=== PATIENT | female | born 1990 | race Caucasian/White ===

== ENCOUNTER 2016-12-10 20:25 | Emergency (ER) | payer OTHER ==
--- NOTE | 2016-12-10 21:27 | DIAGNOSTIC IMAGING REPORT ---
PROCEDURE: XR CHEST 2 VIEW INDICATION: FEVER, initial encounter TECHNIQUE: PA and lateral view. COMPARISON: None. FINDINGS: Lungs are clear. Cardiovascular structures are normal. Bony thorax is unremarkable. IMPRESSION: 1. Negative chest.
--- NOTE | 2016-12-10 21:39 | ED NURSING NOTES ---
Clinical Report - Nurses [facility] [address] [place] [address] 12/10/2016 20:30 Patient: JULIANNE HARRIS TRIAGE Triage time 2034. Acuity: LEVEL 4. Chief Complaint: ("feels like my lungs are froven, they just wont move, theres a bunch of stuff under them, but I can't get it out"). --20:48 Ayse Cline R.N. 20:35 12/10/16. BP: 144/79. HR: 84. RR: 20. O2 saturation: 97% on room air. Temp: 97.9 F. Pain level now: 0/10. --20:48 Ayse Cline R.N. Weight: 89.8 kg stated. Height/Length: 65 inches Per Patient. BMI: 33. --20:44 Ayse Cline R.N. Medications Citalopram Hydrobromide Oral (Tablet 40 mg) 1 tablet, daily . --20:46 Ayse Cline R.N. Vit D 1999 . --20:47 Ayse Cline R.N. albuterol MDI 2 puffs every 4 hours , last dose 1999. --20:47 Ayse Cline R.N. Tessalon Perles Oral 1 capsule, 2x a day, last dose 1899. --20:47 Ayse Cline R.N. Allergies vicodin- migraines, and itchy. --20:45 Ayse Cline R.N. Iodine.(rash) --20:45 Ayse Cline R.N. Zoloft- severe depression and crying fits . --20:46 Ayse Cline R.N. History Arrived by private vehicle. Historian: patient. Unaccompanied. Primary physician (christophe). Onset. (off and on x 3 weeks, getting worse, now having greenish sputum and runny nose). She has had a cough and wheezing. ( was seen for same on the and started on albuterol and tessalon, with out relief). No fever. PAST MEDICAL HX: Negative. Last normal menstrual period- 1 week ago. SURGERY HX: No history of previous surgery. SOCIAL HX: Never smoker. Occasional alcohol use. History of drug use: marijuana. --20:48 Ayse Cline R.N. PROBLEMS: no known problems. ADDITIONAL SURGERIES: no known surgeries. Interventions ID band on patient. To treatment room. --20:48 Ayse Cline R.N. PHYSICAL ASSESSMENT 20:35. Ambulatory to room. GENERAL / NEURO / PSYCH: Alert. Oriented X 4. RESPIRATORY: The patient can speak in full sentences. Cough. CVS: Capillary refill less than 2 seconds. GI / : Abdomen soft. SKIN: Skin is warm and dry. --20:49 Ayse Cline R.N. NURSING PROGRESS NOTES 20:35. Reassurance given. Patient identifiers checked. Call light placed in reach. Side rails up. Bed placed in lowest position. Patient ready for evaluation- chart flagged. --21:17 Ayse Cline R.N. 20:55. Patient transported to radiology by stretcher with tech. --21:19 Ayse Cline R.N. 21:05. Patient returned from radiology by stretcher with tech. ([id number]). --21:19 Ayse Cline R.N. 21:10. ( RT here to do breathing tx). --21:20 Ayse Cline R.N. 21:14 12/10/2016 Duoneb (Ipratropium-Albuterol) Neb TX Nebulizer 1 unit dose given. Given by the respiratory therapist. --21:24 Ayse Cline R.N. 21:40 resting quietly, states that she is feeling better. --22:01 Ayse Cline R.N. DISPOSITION / DISCHARGE 21:45. Condition at departure: unchanged and stable. No learning barriers present. Discharge instructions provided and reviewed with the patient. Reviewed medication(s) (z-pack, robitussin AC). Patient verbalized understanding. Written instructions provided in Wolof. The patient was discharged home and unaccompanied at time of discharge. She left the Emergency Department ambulatory and via private vehicle. Patient driving. --21:53 Ayse Cline R.N. 21:51 12/10/16. BP: deferred. HR: deferred. RR: deferred. O2 saturation: deferred. Temp: deferred. Pain level now: 0/10. --21:53 Ayse Cline R.N. Locked/Released at 12/10/2016 22:01 by Ayse Cline R.N.
--- NOTE | 2016-12-10 21:39 | ED CLINICAL REPORT ---
Clinical Report - Physicians/Mid Levels [facility] [address] [place] [address] 12/10/2016 20:30 Patient: JULIANNE HARRIS Time Seen: 21:19 Dec 10 2016. Arrived- By private vehicle. Historian- patient. HISTORY OF PRESENT ILLNESS Chief Complaint: COUGH. This started 1 months [employer] and is still present. The illness is described as mild. The patient has had a cough. No fever or chills. Additional history - No known contact with a sick individual. (patient cough off and on for about 1 month, has had albuterol treatments. No recent antibiotics. No recent trauma. No hemoptysis. No shortness of breath.). REVIEW OF SYSTEMS No headache, nausea, diarrhea, difficulty with urination or skin rash. No enlarged lymph nodes. All systems otherwise negative, except as recorded above. SOCIAL HISTORY Never smoker. Alcohol use. History of drug use: marijuana. ADDITIONAL NOTES The nursing notes have been reviewed. PHYSICAL EXAM Vital Signs: 12/10/2016 20:35 BP: 144/79. HR: 84. RR: 20. O2 saturation: 97%. Temp: 97.9 F. Pain level now: 0/10. Appearance: Alert. No acute distress. Eyes: Pupils equal, round and reactive to light. ENT: Ears normal. Nose normal. Pharynx normal. Uvula midline. No nasal discharge. Neck: Normal inspection. CVS: Normal heart rate and rhythm. Heart sounds normal. Respiratory: No respiratory distress. Breath sounds normal. No retractions or splinting. Abdomen: Soft and nontender. No abdominal tenderness. Skin: Skin warm. Normal skin color. Neuro: Oriented X 3. No motor deficit. LABS, X-RAYS, AND EKG Chest X-ray: (IMPRESSION: 1. Negative chest. Electronically Final signed by:Soto Lackey MD 12/10/2016 9:27:36 PM). PROGRESS AND PROCEDURES Course of Care: Patient was started on symptoms for a month, afebrile, normal cardiac in the ER, patient with negative chest x-ray. No hemoptysis. No recent travel. Will treat for bronchitis. Patient since plan, has albuterol inhaler. No chest pain. No abdominal pain. No sore throat. Nonseptic afebrile. Patient is stable. Physical exam findings are improved. Symptoms better. Patient/family counseled. Disposition: Discharged. Condition: good. CLINICAL IMPRESSION Acute bronchitis. INSTRUCTIONS Drink plenty of fluids. Warnings: Further evaluation is necessary. Prescription Medications: Robitussin A-C cough syrup take one (1) teaspoon orally every 6 hours as needed for cough for 3 days. Dispense sixty (60) mL. Substitution is permissible. Zithromax 250 mg tablets: take 2 orally today, followed by 1 daily for the next 4 days. No refills. Substitution is permissible. Follow-up: Follow up with your doctor. Understanding of the discharge instructions verbalized by patient. (Electronically signed by Ewa Razo P.A.-C 12/10/2016 21:46)
--- NOTE | 2016-12-10 21:39 | ED ORDER SUMMARY ---
..... Patient: JULIANNE HARRIS OrderSheet [facility] VisitID: [id number] [address] [address] 26y, F Registration Date/Time: 12/10/2016 ORDER SHEET Weight: 89.8 kg (stated) Allergies: vicodin- migraines, and itchy, Iodine, Zoloft- severe depression and crying fits GENERAL ORDERS: Chest 2V Urgent (20:53 12/10/2016 Eden P.A.-C) (Ack 20:59 RKaruga) (21:05 MCampbell) MEDICATION ORDERS: DuoNeb Neb Tx 1 unit dose (NOW) (20:52 12/10/2016 Eden P.A.-C) (21:24 Emre R.N.) IV FLUIDS: ORDER SHEET NOTES: [Electronically signed by Ewa RazoARaul-Maxine (21:46 12/10/2016)] [Electronically signed by Ayse Cline R.N. (22:01 12/10/2016)] [Electronically locked/signed by Ayse Cline R.N. (22:12/10/2016)]
--- NOTE | 2016-12-10 21:39 | ED NURSING NOTES ---
Clinical Report - Nurses [facility] [address] [place] [address] 12/10/2016 20:30 Patient: JULIANNE HARRIS TRIAGE Triage time 2034. Acuity: LEVEL 4. Chief Complaint: ("feels like my lungs are froven, they just wont move, theres a bunch of stuff under them, but I can't get it out"). --20:48 Ayse Cline R.N. 20:35 12/10/16. BP: 144/79. HR: 84. RR: 20. O2 saturation: 97% on room air. Temp: 97.9 F. Pain level now: 0/10. --20:48 Ayse Cline R.N. Weight: 89.8 kg stated. Height/Length: 65 inches Per Patient. BMI: 33. --20:44 Ayse Cline R.N. Medications Citalopram Hydrobromide Oral (Tablet 40 mg) 1 tablet, daily . --20:46 Ayse Cline R.N. Vit D 1999 . --20:47 Ayse Cline R.N. albuterol MDI 2 puffs every 4 hours , last dose 1999. --20:47 Ayse Cline R.N. Tessalon Perles Oral 1 capsule, 2x a day, last dose 1899. --20:47 Ayse Cline R.N. Allergies vicodin- migraines, and itchy. --20:45 Ayse Cline R.N. Iodine.(rash) --20:45 Ayse Cline R.N. Zoloft- severe depression and crying fits . --20:46 Ayse Cline R.N. History Arrived by private vehicle. Historian: patient. Unaccompanied. Primary physician (christophe). Onset. (off and on x 3 weeks, getting worse, now having greenish sputum and runny nose). She has had a cough and wheezing. ( was seen for same on the and started on albuterol and tessalon, with out relief). No fever. PAST MEDICAL HX: Negative. Last normal menstrual period- 1 week ago. SURGERY HX: No history of previous surgery. SOCIAL HX: Never smoker. Occasional alcohol use. History of drug use: marijuana. --20:48 Ayse Cline R.N. PROBLEMS: no known problems. ADDITIONAL SURGERIES: no known surgeries. Interventions ID band on patient. To treatment room. --20:48 Ayse Cline R.N. PHYSICAL ASSESSMENT 20:35. Ambulatory to room. GENERAL / NEURO / PSYCH: Alert. Oriented X 4. RESPIRATORY: The patient can speak in full sentences. Cough. CVS: Capillary refill less than 2 seconds. GI / : Abdomen soft. SKIN: Skin is warm and dry. --20:49 Ayse Cline R.N. NURSING PROGRESS NOTES 20:35. Reassurance given. Patient identifiers checked. Call light placed in reach. Side rails up. Bed placed in lowest position. Patient ready for evaluation- chart flagged. --21:17 Ayse Cline R.N. 20:55. Patient transported to radiology by stretcher with tech. --21:19 Ayse Cline R.N. 21:05. Patient returned from radiology by stretcher with tech. ([id number]). --21:19 Ayse Cline R.N. 21:10. ( RT here to do breathing tx). --21:20 Ayse Cline R.N. 21:14 12/10/2016 Duoneb (Ipratropium-Albuterol) Neb TX Nebulizer 1 unit dose given. Given by the respiratory therapist. --21:24 Ayse Cline R.N. 21:40 resting quietly, states that she is feeling better. --22:01 Ayse Cline R.N. DISPOSITION / DISCHARGE 21:45. Condition at departure: unchanged and stable. No learning barriers present. Discharge instructions provided and reviewed with the patient. Reviewed medication(s) (z-pack, robitussin AC). Patient verbalized understanding. Written instructions provided in Malay. The patient was discharged home and unaccompanied at time of discharge. She left the Emergency Department ambulatory and via private vehicle. Patient driving. --21:53 Ayse Cline R.N. 21:51 12/10/16. BP: deferred. HR: deferred. RR: deferred. O2 saturation: deferred. Temp: deferred. Pain level now: 0/10. --21:53 Ayse Cline R.N. Locked/Released at 12/10/2016 22:01 by Ayes Cline R.N.
--- NOTE | 2016-12-10 21:39 | ED ORDER SUMMARY ---
..... Patient: JULIANNE HARRIS OrderSheet [facility] VisitID: [id number] [address] [place] [address] 26y, F Registration Date/Time: 12/10/2016 ORDER SHEET Weight: 89.8 kg (stated) Allergies: vicodin- migraines, and itchy, Iodine, Zoloft- severe depression and crying fits GENERAL ORDERS: Chest 2V Urgent (20:53 12/10/2016 Eden P.A.-C) (Ack 20:59 RKaruga) (21:05 MCampbell) MEDICATION ORDERS: DuoNeb Neb Tx 1 unit dose (NOW) (20:52 12/10/2016 Eden P.A.-C) (21:24 Emre R.N.) IV FLUIDS: ORDER SHEET NOTES: [Electronically signed by Ewa RazoARaul-Maxine (21:46 12/10/2016)] [Electronically signed by Ayse Cline R.N. (22:01 12/10/2016)] [Electronically locked/signed by Ayse Cline R.N. (22:12/10/2016)]
--- NOTE | 2016-12-10 21:39 | ED CLINICAL REPORT ---
Clinical Report - Physicians/Mid Levels [facility] [address] [place] [place] [address] 12/10/2016 20:30 Patient: JULIANNE HARRIS Time Seen: 21:19 Dec 10 2016. Arrived- By private vehicle. Historian- patient. HISTORY OF PRESENT ILLNESS Chief Complaint: COUGH. This started 1 months [employer] and is still present. The illness is described as mild. The patient has had a cough. No fever or chills. Additional history - No known contact with a sick individual. (patient cough off and on for about 1 month, has had albuterol treatments. No recent antibiotics. No recent trauma. No hemoptysis. No shortness of breath.). REVIEW OF SYSTEMS No headache, nausea, diarrhea, difficulty with urination or skin rash. No enlarged lymph nodes. All systems otherwise negative, except as recorded above. SOCIAL HISTORY Never smoker. Alcohol use. History of drug use: marijuana. ADDITIONAL NOTES The nursing notes have been reviewed. PHYSICAL EXAM Vital Signs: 12/10/2016 20:35 BP: 144/79. HR: 84. RR: 20. O2 saturation: 97%. Temp: 97.9 F. Pain level now: 0/10. Appearance: Alert. No acute distress. Eyes: Pupils equal, round and reactive to light. ENT: Ears normal. Nose normal. Pharynx normal. Uvula midline. No nasal discharge. Neck: Normal inspection. CVS: Normal heart rate and rhythm. Heart sounds normal. Respiratory: No respiratory distress. Breath sounds normal. No retractions or splinting. Abdomen: Soft and nontender. No abdominal tenderness. Skin: Skin warm. Normal skin color. Neuro: Oriented X 3. No motor deficit. LABS, X-RAYS, AND EKG Chest X-ray: (IMPRESSION: 1. Negative chest. Electronically Final signed by:Soto Lackey MD 12/10/2016 9:27:36 PM). PROGRESS AND PROCEDURES Course of Care: Patient was started on symptoms for a month, afebrile, normal cardiac in the ER, patient with negative chest x-ray. No hemoptysis. No recent travel. Will treat for bronchitis. Patient since plan, has albuterol inhaler. No chest pain. No abdominal pain. No sore throat. Nonseptic afebrile. Patient is stable. Physical exam findings are improved. Symptoms better. Patient/family counseled. Disposition: Discharged. Condition: good. CLINICAL IMPRESSION Acute bronchitis. INSTRUCTIONS Drink plenty of fluids. Warnings: Further evaluation is necessary. Prescription Medications: Robitussin A-C cough syrup take one (1) teaspoon orally every 6 hours as needed for cough for 3 days. Dispense sixty (60) mL. Substitution is permissible. Zithromax 250 mg tablets: take 2 orally today, followed by 1 daily for the next 4 days. No refills. Substitution is permissible. Follow-up: Follow up with your doctor. Understanding of the discharge instructions verbalized by patient. (Electronically signed by Ewa Razo P.A.-C 12/10/2016 21:46)
--- NOTE | 2016-12-10 22:02 | ED MAR SUMMARY ---
..... Medication Administration Record [facility] [address] [place] [address] Patient: JULIANNE HARRIS Visit ID: [id number] 26y, F Weight: 89.8 kg Height/Length: 65 in BMI: 33 ALLERGIES: Zoloft- severe depression and crying fits , Iodine, vicodin- migraines, and itchy Given 21:14 12/10/2016 SonAyse R.N. Medication Administered: DUONEB [NEB TX] (IPRATROPIUM-ALBUTEROL), Dose: 1 unit dose Nebulizer Neb TX. Medication Ordered: DuoNeb Neb Tx 1 unit dose (NOW).
--- NOTE | 2016-12-10 22:02 | ED DISCHARGE INSTRUCTIONS ---
Patient: JULIANNE HARRIS General Instructions [facility] VisitID: [id number] [place] [address] 26y, F Registration Date/Time: 12/10/2016 Acute bronchitis. INSTRUCTIONS Drink plenty of fluids. Warnings: Further evaluation is necessary. Prescription Medications: Robitussin A-C cough syrup take one (1) teaspoon orally every 6 hours as needed for cough for 3 days. Dispense sixty (60) mL. Substitution is permissible. Zithromax 250 mg tablets: take 2 orally today, followed by 1 daily for the next 4 days. No refills. Substitution is permissible. Follow-up: Follow up with your doctor. Understanding of the discharge instructions verbalized by patient. ADDITIONAL INFORMATION Bronchitis (Adult: Abx Tx) BRONCHITIS is an infection of the air passages (bronchial tubes). It often occurs during the common cold. Symptoms include cough with mucus (phlegm) and low-grade fever. Bronchitis usually lasts 7-14 days. Mild cases can be treated with simple home remedies. More severe infection is treated with an antibiotic. Home Care: If symptoms are severe, rest at home for the first 2-3 days. When you resume activity, don't let yourself get too tired. Do not smoke. Avoid being exposed to the smoke of others. You may use acetaminophen (Tylenol) or ibuprofen (Motrin, Advil) to control fever or pain, unless another medicine was prescribed for this. [NOTE: If you have chronic liver or kidney disease or ever had a stomach ulcer or GI bleeding, talk with your doctor before using these medicines.] Your appetite may be poor, so a light diet is fine. Avoid dehydration by drinking 6-8 glasses of fluids per day (water, soft, drinks, juices, tea, soup, etc.). Extra fluids will help loosen secretions in the lungs. Lhiw-iuz-pwjkffu cough medicines that containdextromethorphan(such as Robitussin DM) and decongestants (Actifed or Sudafed) may help relieve cough and congestion. [NOTE: Do not use decongestants if you have high blood pressure.] Finish all antibiotic medicine, even if you are feeling better after only a few days. Follow Up with your doctor or as directed if you dont start to feel better after three days. [NOTE: If you are age 65 or older, or if you have chronic asthma or COPD, we recommend a PNEUMOCOCCAL VACCINATION every five years and a yearly INFLUENZAVACCINATION (FLU-SHOT) every . Ask your doctor about this. If you had an X-ray, a radiologist will review it. You will be notified of any new findings that may affect your care.] Get Prompt Medical Attention if any of the following occur: Fever over 100.4F (38.0C) for more than three days Trouble breathing, wheezing or pain with breathing Coughing up blood or increased amounts of colored sputum Weakness, drowsiness, headache, facial pain, ear pain or a stiff neck You have been given the following additional information: Bronchitis, Antiobiotic Treatment (Adult) (Electronically signed by Ewa Razo P.A.-C 12/10/2016 21:46)
--- NOTE | 2016-12-10 22:02 | ED MAR SUMMARY ---
..... Medication Administration Record [facility] [address] [place] [address] Patient: JULIANNE HARRIS Visit ID: [id number] 26y, F Weight: 89.8 kg Height/Length: 65 in BMI: 33 ALLERGIES: Zoloft- severe depression and crying fits , Iodine, vicodin- migraines, and itchy Given 21:14 12/10/2016 SonAyse R.N. Medication Administered: DUONEB [NEB TX] (IPRATROPIUM-ALBUTEROL), Dose: 1 unit dose Nebulizer Neb TX. Medication Ordered: DuoNeb Neb Tx 1 unit dose (NOW).
--- NOTE | 2016-12-10 22:02 | ED MED RECONCILIATION SUMMARY ---
Patient: JULIANNE HARRIS Medication Reconciliation Report [facility] VisitID: [id number] [place] [address] 26y, F Registration Date/Time: 12/10/2016 Weight: 89.8 kg Height/Length: 65 in. BMI: 33.0 ALLERGIES: Iodine, vicodin- migraines, and itchy, Zoloft- severe depression and crying fits The patient's Home Medications are listed below: THE FOLLOWING MEDICATIONS NEED TO BE RECONCILED: albuterol MDI 2 puffs every 4 hours , last dose: 1999 Citalopram Hydrobromide Oral (40 mg) 1 tablet, daily Tessalon Perles Oral 1 capsule, 2x a day, last dose: 1900 Vit D 1999 daiy The source(s) of the original Home Medication information: Not obtained. The following Medications were given to the patient in the Emergency Department: Duoneb [Neb Tx] Neb TX 1 unit dose, administered: 12/10/2016 9:14:00 PM The following Medications were prescribed to the patient: Robitussin A-C cough syrup take one (1) teaspoon orally every 6 hours as needed for cough for 3 days. Dispense sixty (60) mL. Substitution is permissible. -- Ewa Razo P.A.-C Zithromax 250 mg tablets: take 2 orally today, followed by 1 daily for the next 4 days. No refills. Substitution is permissible. -- Ewa Razo P.A.-C
--- NOTE | 2016-12-10 22:02 | ED MED RECONCILIATION SUMMARY ---
Patient: JULIANNE HARRIS Medication Reconciliation Report [facility] VisitID: [id number] [place] [address] 26y, F Registration Date/Time: 12/10/2016 Weight: 89.8 kg Height/Length: 65 in. BMI: 33.0 ALLERGIES: Iodine, vicodin- migraines, and itchy, Zoloft- severe depression and crying fits The patient's Home Medications are listed below: THE FOLLOWING MEDICATIONS NEED TO BE RECONCILED: albuterol MDI 2 puffs every 4 hours , last dose: 1999 Citalopram Hydrobromide Oral (40 mg) 1 tablet, daily Tessalon Perles Oral 1 capsule, 2x a day, last dose: 1900 Vit D 1999 daiy The source(s) of the original Home Medication information: Not obtained. The following Medications were given to the patient in the Emergency Department: Duoneb [Neb Tx] Neb TX 1 unit dose, administered: 12/10/2016 9:14:00 PM The following Medications were prescribed to the patient: Robitussin A-C cough syrup take one (1) teaspoon orally every 6 hours as needed for cough for 3 days. Dispense sixty (60) mL. Substitution is permissible. -- Ewa Razo P.A.-C Zithromax 250 mg tablets: take 2 orally today, followed by 1 daily for the next 4 days. No refills. Substitution is permissible. -- Ewa Razo P.A.-C
== END 2016-12-10 21:48 | disposition home or self-care (01) ==
LOC: ED SRH 20:25
DX: J20.9 Acute bronchitis, unspecified (principal)

== ENCOUNTER 2017-02-03 14:20 | Emergency (ER) | payer OTHER ==
--- NOTE | 2017-02-03 18:44 | ED CLINICAL REPORT ---
Clinical Report - Physicians/Mid Levels [facility] [address] [place] [address] 02/03/2017 14:21 Patient: JULIANNE HARRIS Time Seen: 14:26; upon arrival, initial patient contact, initial documentation, patient care assumed. Arrived- By private vehicle. Historian- patient. HISTORY OF PRESENT ILLNESS Chief Complaint: PELVIC PAIN. This started about 2 weeks ago and still present. The symptoms are described as mild. Modifying factors. Not worsened by anything. Not relieved by anything. The patient has had mild, crampy abdominal pain. She has had mild, intermittent, crampy pelvic pain, described as "pain". No vaginal pain, low back pain, flank pain, abnormal bleeding or vaginal discharge. No urinary frequency, urgency of urination or hematuria. She has had mild pain with urination (today). It is described as "painful". Sexually active- unprotected sex and heterosexual. No exposure to sexually transmitted disease. Does not use control measures. Currently . In 1st trimester. confirmed with home test. Has had no care. G 5. P 2. Ab 2. Not receiving care. Similar symptoms previously: None. Recent medical care: The patient was seen recently in a clinic. ( went to clinic port captain, sent here for further eval). REVIEW OF SYSTEMS No vomiting, diarrhea, fever, difficulty breathing or chest pain. All systems otherwise negative, except as recorded above. PAST HISTORY See nurses notes. ( PROBLEMS: Anxiety Reaction. Optical migranes . Bronchitis. --14:30 Ирина Duarte R.N. ADDITIONAL SURGERIES: no known surgeries.). SOCIAL HISTORY Former smoker. No alcohol use or drug use. No recent travel. Is a local resident. FAMILY HISTORY Negative. ADDITIONAL NOTES The nursing notes have been reviewed with agreement regarding the chief complaint, HPI, ROS, PMH and patient medications and allergies. PHYSICAL EXAM Vital Signs: 02/03/2017 14:26 BP: 129/78. HR: 89. RR: 18. O2 saturation: 100%. Temp: 98.4 F. Have been reviewed as normal and appear to be correct. Appearance: Alert. Oriented X3. No acute distress. HEENT: Normal external inspection. ENT: Pharynx normal. Neck: Neck supple. CVS: Heart sounds normal. Respiratory: No respiratory distress. Breath sounds normal. Chest nontender. Abdomen: Soft and nontender. Bowel sounds normal. No organomegaly. No mass. Back: Normal external inspection. : External inspection normal. Speculum exam normal. Bimanual exam normal. Skin: Skin warm and dry. Normal skin color. No rash. Normal skin turgor. Extremities: Extremities nontender. No lower extremity edema. Neuro: Oriented X 3. Mood/affect normal. No motor deficit. No sensory deficit. LABS, X-RAYS, AND EKG Pelvic Sonogram: Normal study. A single gestation intrauterine (5w1d) is present. No cardiac activity or movement visualized. Viable intrauterine . . report by [employer]. Interpretation time: 1824. Laboratory Tests: CBC w Diff: (SANTOS: 02/03/2017 15:40) ( [facility] 02/03/2017 15:46) Final results Test Result Flag Units (Reference) WHITE BLOOD COUNT 13.3 H K/uL (4.5-11.5) RED BLOOD COUNT 4.46 M/uL (4.00-5.20) HEMOGLOBIN 12.6 gm/dL (12.0-16.0) HEMATOCRIT 37.5 % (36.0-46.0) MEAN CELL VOLUME 84 fL (80-100) MEAN CORPUSCULAR HGB 28 pg (26-34) MEAN CORPUSCULAR HGB CONC 34 g/dL (31-37) RED CELL DISTRIBUTION WIDTH 13.2 % (11.6-14.8) PLATELET COUNT 362 K/uL (150-400) NEUTROPHIL % 74.9 % (50-75) LYMPH % 17.4 L % (25-40) MONO % 5.6 % (3-14) EOSINOPHIL % 1.7 % (0-4) BASOPHIL % 0.4 % (0-2) CMP: (SANTOS: 02/03/2017 15:40) ( [facility] 02/03/2017 16:36) Final results Test Result Flag Units (Reference) GLUCOSE 88 mg/dL (70-110) BUN 12 mg/dL (7-18) CREATININE 0.9 mg/dL (0.6-1.3) Estimated GFR >60 mL/min Estimated GFR- >60 mL/min Note: Persistent reduction over 3 months in eGFR<60 mL/min/1.73 m2 defines CKD. Patients with eGFR values>=60 mL/min/1.73 m2 may also have CKD if evidence ofpersistent proteinuria. Additional information may be foundat www.kidney.org. SODIUM 138 mmol/L (136-145) POTASSIUM 4.0 mmol/L (3.5-5.1) CHLORIDE 102 mmol/L (98-107) CARBON DIOXIDE 27 mmol/L (21-32) CALCIUM 8.9 mg/dL (8.5-10.1) TOTAL PROTEIN 7.1 g/dL (6.4-8.2) ALBUMIN 3.8 g/dL (3.3-5.0) BILIRUBIN, TOTAL 0.4 mg/dL (0.0-1.0) ALKALINE PHOSPHATASE 66 U/L (46-116) AST (SGOT) 24 U/L (15-37) ALT (SGPT) 54 U/L (12-78) BETA HCG, QUANTITATIVE 4189 mIU/mL REFERENCE RANGE:Adult Males: <2 mIU/mLNon- Females: <6 mIU/mL Females:Approximate Approximate hCGGestational Age Range (mIU/mL) 0-1 week 0-501-2 weeks 40-3002-3 weeks 100-86413-8 weeks 500-46504-1 months 5,000-200,0002-3 months 10,000-100,0002nd trimester 3,000-50,0003rd trimester 1,000-50,000 . PROGRESS AND PROCEDURES Course of Care: 17:26 02/03/17. still awaiting us, eta 1800. Patient counseled in person regarding the patient's stable condition, test results and diagnosis. 18:38. Differential Diagnosis: I considered acute appendicitis, mesenteric lymphadenitis, urinary tract infection, cystitis, ureterolithiasis, ovarian cyst, ovarian torsion, , ectopic , pelvic inflammatory disease, pelvic abscess, endometriosis and viral syndrome as a possible cause of pelvic pain in this patient. This is a partial list of diagnoses considered. Above considerations are based on history, physical exam and laboratory data. Differential diagnosis was discussed with patient. Disposition: Discharged home in good and unchanged condition (18:44). Condition: good and stable. CLINICAL IMPRESSION Acute pelvic pain. Acute urinary tract infection with cystitis. No pyelonephritis or hematuria. Not associated with indwelling catheter or obstruction. INSTRUCTIONS Warnings: GENERAL WARNINGS: Return or contact your physician immediately if your condition worsens or changes unexpectedly, if not improving as expected, or if other problems arise. Specifically return if problem worsens. Prescription Medications: Macrobid 100 mg: Take 1 capsule orally every 12 hours for 7 days. No refills. Substitution is permissible. Follow-up: Follow up with your doctor in about two days even if well. Call for an appointment. Summary of care provided to patient. Understanding of the discharge instructions verbalized by patient. (Electronically signed by Livia Gunderson A.R.N.P. 02/03/2017 23:58)
--- NOTE | 2017-02-03 18:44 | ED CLINICAL REPORT ---
Clinical Report - Physicians/Mid Levels [facility] [address] [place] [place] [address] 02/03/2017 14:21 Patient: JULIANNE HARRIS Time Seen: 14:26; upon arrival, initial patient contact, initial documentation, patient care assumed. Arrived- By private vehicle. Historian- patient. HISTORY OF PRESENT ILLNESS Chief Complaint: PELVIC PAIN. This started about 2 weeks ago and still present. The symptoms are described as mild. Modifying factors. Not worsened by anything. Not relieved by anything. The patient has had mild, crampy abdominal pain. She has had mild, intermittent, crampy pelvic pain, described as "pain". No vaginal pain, low back pain, flank pain, abnormal bleeding or vaginal discharge. No urinary frequency, urgency of urination or hematuria. She has had mild pain with urination (today). It is described as "painful". Sexually active- unprotected sex and heterosexual. No exposure to sexually transmitted disease. Does not use control measures. Currently . In 1st trimester. confirmed with home test. Has had no care. G 5. P 2. Ab 2. Not receiving care. Similar symptoms previously: None. Recent medical care: The patient was seen recently in a clinic. ( went to clinic barge captain, sent here for further eval). REVIEW OF SYSTEMS No vomiting, diarrhea, fever, difficulty breathing or chest pain. All systems otherwise negative, except as recorded above. PAST HISTORY See nurses notes. ( PROBLEMS: Anxiety Reaction. Optical migranes . Bronchitis. --14:30 Ирина Duarte R.N. ADDITIONAL SURGERIES: no known surgeries.). SOCIAL HISTORY Former smoker. No alcohol use or drug use. No recent travel. Is a local resident. FAMILY HISTORY Negative. ADDITIONAL NOTES The nursing notes have been reviewed with agreement regarding the chief complaint, HPI, ROS, PMH and patient medications and allergies. PHYSICAL EXAM Vital Signs: 02/03/2017 14:26 BP: 129/78. HR: 89. RR: 18. O2 saturation: 100%. Temp: 98.4 F. Have been reviewed as normal and appear to be correct. Appearance: Alert. Oriented X3. No acute distress. HEENT: Normal external inspection. ENT: Pharynx normal. Neck: Neck supple. CVS: Heart sounds normal. Respiratory: No respiratory distress. Breath sounds normal. Chest nontender. Abdomen: Soft and nontender. Bowel sounds normal. No organomegaly. No mass. Back: Normal external inspection. : External inspection normal. Speculum exam normal. Bimanual exam normal. Skin: Skin warm and dry. Normal skin color. No rash. Normal skin turgor. Extremities: Extremities nontender. No lower extremity edema. Neuro: Oriented X 3. Mood/affect normal. No motor deficit. No sensory deficit. LABS, X-RAYS, AND EKG Pelvic Sonogram: Normal study. A single gestation intrauterine (5w1d) is present. No cardiac activity or movement visualized. Viable intrauterine . . report by [employer]. Interpretation time: 1824. Laboratory Tests: CBC w Diff: (SANTOS: 02/03/2017 15:40) ( [facility] 02/03/2017 15:46) Final results Test Result Flag Units (Reference) WHITE BLOOD COUNT 13.3 H K/uL (4.5-11.5) RED BLOOD COUNT 4.46 M/uL (4.00-5.20) HEMOGLOBIN 12.6 gm/dL (12.0-16.0) HEMATOCRIT 37.5 % (36.0-46.0) MEAN CELL VOLUME 84 fL (80-100) MEAN CORPUSCULAR HGB 28 pg (26-34) MEAN CORPUSCULAR HGB CONC 34 g/dL (31-37) RED CELL DISTRIBUTION WIDTH 13.2 % (11.6-14.8) PLATELET COUNT 362 K/uL (150-400) NEUTROPHIL % 74.9 % (50-75) LYMPH % 17.4 L % (25-40) MONO % 5.6 % (3-14) EOSINOPHIL % 1.7 % (0-4) BASOPHIL % 0.4 % (0-2) CMP: (SANTOS: 02/03/2017 15:40) ( [facility] 02/03/2017 16:36) Final results Test Result Flag Units (Reference) GLUCOSE 88 mg/dL (70-110) BUN 12 mg/dL (7-18) CREATININE 0.9 mg/dL (0.6-1.3) Estimated GFR >60 mL/min Estimated GFR- >60 mL/min Note: Persistent reduction over 3 months in eGFR<60 mL/min/1.73 m2 defines CKD. Patients with eGFR values>=60 mL/min/1.73 m2 may also have CKD if evidence ofpersistent proteinuria. Additional information may be foundat www.kidney.org. SODIUM 138 mmol/L (136-145) POTASSIUM 4.0 mmol/L (3.5-5.1) CHLORIDE 102 mmol/L (98-107) CARBON DIOXIDE 27 mmol/L (21-32) CALCIUM 8.9 mg/dL (8.5-10.1) TOTAL PROTEIN 7.1 g/dL (6.4-8.2) ALBUMIN 3.8 g/dL (3.3-5.0) BILIRUBIN, TOTAL 0.4 mg/dL (0.0-1.0) ALKALINE PHOSPHATASE 66 U/L (46-116) AST (SGOT) 24 U/L (15-37) ALT (SGPT) 54 U/L (12-78) BETA HCG, QUANTITATIVE 4189 mIU/mL REFERENCE RANGE:Adult Males: <2 mIU/mLNon- Females: <6 mIU/mL Females:Approximate Approximate hCGGestational Age Range (mIU/mL) 0-1 week 0-501-2 weeks 40-3002-3 weeks 100-88595-7 weeks 500-64900-2 months 5,000-200,0002-3 months 10,000-100,0002nd trimester 3,000-50,0003rd trimester 1,000-50,000 . PROGRESS AND PROCEDURES Course of Care: 17:26 02/03/17. still awaiting us, eta 1800. Patient counseled in person regarding the patient's stable condition, test results and diagnosis. 18:38. Differential Diagnosis: I considered acute appendicitis, mesenteric lymphadenitis, urinary tract infection, cystitis, ureterolithiasis, ovarian cyst, ovarian torsion, , ectopic , pelvic inflammatory disease, pelvic abscess, endometriosis and viral syndrome as a possible cause of pelvic pain in this patient. This is a partial list of diagnoses considered. Above considerations are based on history, physical exam and laboratory data. Differential diagnosis was discussed with patient. Disposition: Discharged home in good and unchanged condition (18:44). Condition: good and stable. CLINICAL IMPRESSION Acute pelvic pain. Acute urinary tract infection with cystitis. No pyelonephritis or hematuria. Not associated with indwelling catheter or obstruction. INSTRUCTIONS Warnings: GENERAL WARNINGS: Return or contact your physician immediately if your condition worsens or changes unexpectedly, if not improving as expected, or if other problems arise. Specifically return if problem worsens. Prescription Medications: Macrobid 100 mg: Take 1 capsule orally every 12 hours for 7 days. No refills. Substitution is permissible. Follow-up: Follow up with your doctor in about two days even if well. Call for an appointment. Summary of care provided to patient. Understanding of the discharge instructions verbalized by patient. (Electronically signed by Livia Gunderson A.R.N.P. 02/03/2017 23:58)
--- NOTE | 2017-02-03 18:44 | ED NURSING NOTES ---
Clinical Report - Nurses [facility] [address] [place] [address] 02/03/2017 14:21 Patient: JULIANNE HARRIS TRIAGE Triage time 14:Feb 03 2017. Acuity: LEVEL 3. Chief Complaint: ABDOMINAL PAIN and CRAMPS. VISH COMA SCORE: Vish Coma Scale: 15- eyes open spontaneously (4); best verbal response- oriented x 4 (5); best motor response- obeys commands (6). --14:33 Ирина Duarte R.N. 14:26 02/03/17. BP: 129/78. HR: 89. RR: 18. O2 saturation: 100%. Temp: 98.4 F. Pain level now 2/10. --14:33 Ирина Duarte R.N. Weight: 90.7 kg. Height/Length: 65 inches Per Patient. BMI: 33.3. --14:30 Ирина Duarte R.N. Medications Citalopram Hydrobromide Oral. --14:28 Ирина Duarte R.N. Prenantal . --14:28 Ирина Duarte R.N. Allergies Iodine.(rash) vicodin- migraines, and itchy. --14:29 Ирина Duarte R.N. Latex. --14:29 Ирина Duarte R.N. History Arrived by private vehicle. Historian: patient. Accompanied by family. Onset. (2 weeks of cramping). ( 5 weeks and cramping.). No vomiting, fever or swelling. Last oral intake by patient was (130 PM). PAST MEDICAL HX: Mild hypertension. No history of diabetes mellitus. Immunizations: up-to-date. Currently . No known risks or problems associated with current . OB history: G 5; P 2; Ab 4. SOCIAL HX: Former smoker, end date 2015. No alcohol use or drug use. SELF HARM ASSESSMENT: A self harm assessment was performed. The patient answered "no" to the question "Have you recently felt down, depressed, or hopeless?" and "Do you have thoughts of harming or killing yourself?". FALL RISK ASSESSMENT: Fall risk assessment completed. No fall risk identified. NUTRITIONAL RISK ASSESSMENT: The nutritional risk assessment revealed no deficiencies. FUNCTIONAL ASSESSMENT: Functional assessment: no impairments noted. LEARNING NEEDS ASSESSMENT: The learning needs assessment revealed no barriers. ABUSE ASSESSMENT: Abuse assessment: (yes) The patient was asked "Do you feel safe in your home?". SKIN INTEGRITY ASSESSMENT: Skin integrity risk assessment completed. No skin integrity risk identified. --14:33 Ирина Duarte R.N. PROBLEMS: Anxiety Reaction. Optical migranes . Bronchitis. --14:30 Ирина Duarte R.N. ADDITIONAL SURGERIES: no known surgeries. Interventions ID and allergy band on patient. --14:33 Ирина Duarte R.N. PHYSICAL ASSESSMENT Ambulatory to room. GENERAL / NEURO / PSYCH: Alert. Oriented X 4. Appears anxious. HEENT: Mucous membranes are pink. RESPIRATORY: Respirations not labored. Breath sounds within normal limits. CVS: Normal heart rate and rhythm. Capillary refill less than 2 seconds. GI / : Abdomen soft. Abdominal tenderness. Bowel sounds within normal limits. ( Last BM 2 hours ago and normal). EXTREMITIES: No lower extremity edema. SKIN: Skin is warm. --14:34 Ирина Duarte R.N. NURSING PROGRESS NOTES The plan of care for this patient has been created. Pulse oximeter and NIBP monitor placed on patient. Head of bed elevated (90). Reassurance given. Call light placed in reach. Side rails up x 1. Bed placed in lowest position. Brakes of bed on. --14:34 Ирина Duarte R.N. PELVIC EXAM: Pelvic exam performed by BUSINESS CONTINUITY PLANNER. Assisted by one tech. Preparation: pelvic tray. Total time of assist / procedure: 15 minutes. --15:22 Samantha Dhillon ER Tech1 18:24 02/03/17. ( Outside Machinist Supervisor provided for Ultrasound). --18:25 Duy Buenrostro. DISPOSITION / DISCHARGE Departure time: 1850. Condition at departure: improved. No learning barriers present. Discharge instructions provided and reviewed with the patient and family. Reviewed medication(s) information. Prescription(s) given to the patient. Reviewed referral to family practice for followup (in 2 days even if well). Verbalized understanding. Written instructions provided. The patient was discharged home and accompanied by family. She left the Emergency Department ambulatory and via private vehicle. --18:55 Herminia Klein R.N. 18:50 02/03/17. BP: 132/84. HR: 95. RR: 18. O2 saturation: 95%. --18:55 Herminia Klein R.N. Locked/Released at 02/04/2017 19:27 by Ирина Duarte R.N.
--- NOTE | 2017-02-03 18:44 | ED NURSING NOTES ---
Clinical Report - Nurses [facility] [address] [place] [address] 02/03/2017 14:21 Patient: JULIANNE HARRIS TRIAGE Triage time 14:Feb 03 2017. Acuity: LEVEL 3. Chief Complaint: ABDOMINAL PAIN and CRAMPS. VISH COMA SCORE: Vish Coma Scale: 15- eyes open spontaneously (4); best verbal response- oriented x 4 (5); best motor response- obeys commands (6). --14:33 Ирина Duarte R.N. 14:26 02/03/17. BP: 129/78. HR: 89. RR: 18. O2 saturation: 100%. Temp: 98.4 F. Pain level now 2/10. --14:33 Ирина Duarte R.N. Weight: 90.7 kg. Height/Length: 65 inches Per Patient. BMI: 33.3. --14:30 Ирина Duarte R.N. Medications Citalopram Hydrobromide Oral. --14:28 Ирина Duarte R.N. Prenantal . --14:28 Ирина Duarte R.N. Allergies Iodine.(rash) vicodin- migraines, and itchy. --14:29 Ирина Duarte R.N. Latex. --14:29 Ирина Duarte R.N. History Arrived by private vehicle. Historian: patient. Accompanied by family. Onset. (2 weeks of cramping). ( 5 weeks and cramping.). No vomiting, fever or swelling. Last oral intake by patient was (130 PM). PAST MEDICAL HX: Mild hypertension. No history of diabetes mellitus. Immunizations: up-to-date. Currently . No known risks or problems associated with current . OB history: G 5; P 2; Ab 4. SOCIAL HX: Former smoker, end date 2015. No alcohol use or drug use. SELF HARM ASSESSMENT: A self harm assessment was performed. The patient answered "no" to the question "Have you recently felt down, depressed, or hopeless?" and "Do you have thoughts of harming or killing yourself?". FALL RISK ASSESSMENT: Fall risk assessment completed. No fall risk identified. NUTRITIONAL RISK ASSESSMENT: The nutritional risk assessment revealed no deficiencies. FUNCTIONAL ASSESSMENT: Functional assessment: no impairments noted. LEARNING NEEDS ASSESSMENT: The learning needs assessment revealed no barriers. ABUSE ASSESSMENT: Abuse assessment: (yes) The patient was asked "Do you feel safe in your home?". SKIN INTEGRITY ASSESSMENT: Skin integrity risk assessment completed. No skin integrity risk identified. --14:33 Ирина Duarte R.N. PROBLEMS: Anxiety Reaction. Optical migranes . Bronchitis. --14:30 Ирина Duarte R.N. ADDITIONAL SURGERIES: no known surgeries. Interventions ID and allergy band on patient. --14:33 Ирина Duarte R.N. PHYSICAL ASSESSMENT Ambulatory to room. GENERAL / NEURO / PSYCH: Alert. Oriented X 4. Appears anxious. HEENT: Mucous membranes are pink. RESPIRATORY: Respirations not labored. Breath sounds within normal limits. CVS: Normal heart rate and rhythm. Capillary refill less than 2 seconds. GI / : Abdomen soft. Abdominal tenderness. Bowel sounds within normal limits. ( Last BM 2 hours ago and normal). EXTREMITIES: No lower extremity edema. SKIN: Skin is warm. --14:34 Ирина Duarte R.N. NURSING PROGRESS NOTES The plan of care for this patient has been created. Pulse oximeter and NIBP monitor placed on patient. Head of bed elevated (90). Reassurance given. Call light placed in reach. Side rails up x 1. Bed placed in lowest position. Brakes of bed on. --14:34 Ирина Duarte R.N. PELVIC EXAM: Pelvic exam performed by FAMILY DEVELOPMENT SPECIALIST. Assisted by one tech. Preparation: pelvic tray. Total time of assist / procedure: 15 minutes. --15:22 Samantha Dhillon ER Tech1 18:24 02/03/17. ( Packing Floor Worker provided for Ultrasound). --18:25 Duy Buenrostro. DISPOSITION / DISCHARGE Departure time: 1850. Condition at departure: improved. No learning barriers present. Discharge instructions provided and reviewed with the patient and family. Reviewed medication(s) information. Prescription(s) given to the patient. Reviewed referral to family practice for followup (in 2 days even if well). Verbalized understanding. Written instructions provided. The patient was discharged home and accompanied by family. She left the Emergency Department ambulatory and via private vehicle. --18:55 Herminia Klein R.N. 18:50 02/03/17. BP: 132/84. HR: 95. RR: 18. O2 saturation: 95%. --18:55 Herminia Klein R.N. Locked/Released at 02/04/2017 19:27 by Ирина Duarte R.N.
--- NOTE | 2017-02-03 18:44 | ED ORDER SUMMARY ---
..... Patient: JULIANNE HARRIS OrderSheet [facility] VisitID: [id number] [address] [place] [address] 26y, F Registration Date/Time: 02/03/2017 ORDER SHEET Weight: 90.7 kg Allergies: Iodine, vicodin- migraines, and itchy, Latex GENERAL ORDERS: CBC w Diff Urgent (15:32 02/03/2017 HBivens A.R.N.P.) (Ack 15:34 KHoerner) (16:38 KHoerner) CMP Urgent (15:32 02/03/2017 HBivens A.R.N.P.) (Ack 15:34 KHoerner) (16:38 KHoerner) Serum Quantitative Urgent (15:32 02/03/2017 HBivens A.R.N.P.) (Ack 15:34 KHoerner) (16:38 KHoerner) US OB 1st Trimester w Transvag (5 wks) Urgent (16:44 02/03/2017 HBivens A.R.N.P.) (Ack 16:55 KHoerner) (18:39 MWinterer R.N.) UA-Culture if indicated Urgent (17:08 02/03/2017 HBivens A.R.N.P.) (Ack 17:11 KHoerner) (17:11 KHoerner) MEDICATION ORDERS: IV FLUIDS: ORDER SHEET NOTES: [Electronically signed by Livia Gunderson A.R.N.P. (23:58 02/03/2017)] [Electronically signed by Ирина Duarte R.N. (19:27 02/04/2017)] [Electronically locked/signed by Ирина Duarte R.N. (:02/04/2017)]
--- NOTE | 2017-02-03 18:44 | ED ORDER SUMMARY ---
..... Patient: JULIANNE HARRIS OrderSheet [facility] VisitID: [id number] [address] [place] [address] 26y, F Registration Date/Time: 02/03/2017 ORDER SHEET Weight: 90.7 kg Allergies: Iodine, vicodin- migraines, and itchy, Latex GENERAL ORDERS: CBC w Diff Urgent (15:32 02/03/2017 HBivens A.R.N.P.) (Ack 15:34 KHoerner) (16:38 KHoerner) CMP Urgent (15:32 02/03/2017 HBivens A.R.N.P.) (Ack 15:34 KHoerner) (16:38 KHoerner) Serum Quantitative Urgent (15:32 02/03/2017 HBivens A.R.N.P.) (Ack 15:34 KHoerner) (16:38 KHoerner) US OB 1st Trimester w Transvag (5 wks) Urgent (16:44 02/03/2017 HBivens A.R.N.P.) (Ack 16:55 KHoerner) (18:39 MWinterer R.N.) UA-Culture if indicated Urgent (17:08 02/03/2017 HBivens A.R.N.P.) (Ack 17:11 KHoerner) (17:11 KHoerner) MEDICATION ORDERS: IV FLUIDS: ORDER SHEET NOTES: [Electronically signed by Livia Gunderson A.R.N.P. (23:58 02/03/2017)] [Electronically signed by Ирина Duarte R.N. (19:27 02/04/2017)] [Electronically locked/signed by Ирина Duarte R.N. (:02/04/2017)]
--- NOTE | 2017-02-03 20:25 | DIAGNOSTIC IMAGING REPORT ---
PROCEDURE: US OB 1ST TRIMESTER W/TRANSVAG INDICATION: POSSIBLE ECTOPIC TECHNIQUE: Deng scale, color, and spectral Doppler transabdominal and endovaginal sonographic images of the first trimester gravid uterus were obtained. (Omid Condon, ED). COMPARISON: None. FINDINGS: TRANSABDOMINAL SCANS: Uterus is of normal size. TRANSVAGINAL SCANS: There is an early intrauterine gestational sac (0.7 cm). However, there is no evidence of pole or yolk sac. Right adnexal region is normal. There is a 1.8 cm left corpus luteum cyst. Small amount of free fluid the pelvis IMPRESSION: 1. Early intrauterine gestational sac (0.7 cm, 5.5 weeks). However, there is no pole at this early gestational age, and viability cannot be confirmed. 2. There is a 1.8 cm left corpus luteum cyst (incidental finding) with small amount of free fluid in the pelvis. 3. Fine discussed with MARCELA Gleason.
--- NOTE | 2017-02-04 19:27 | ED MED RECONCILIATION SUMMARY ---
Patient: JULIANNE HARRIS Medication Reconciliation Report [facility] VisitID: [id number] [address] [place] [address] 26y, F Registration Date/Time: 02/03/2017 Weight: 90.7 kg Height/Length: 65 in. BMI: 33.3 ALLERGIES: Iodine, Latex, vicodin- migraines, and itchy The patient's Home Medications are listed below: THE FOLLOWING MEDICATIONS NEED TO BE RECONCILED: Citalopram Hydrobromide Oral Prenantal The source(s) of the original Home Medication information: Not obtained. The following Medications were given to the patient in the Emergency Department: None. The following Medications were prescribed to the patient: Macrobid 100 mg: Take 1 capsule orally every 12 hours for 7 days. No refills. Substitution is permissible. -- Livia Gunderson A.R.N.P.
--- NOTE | 2017-02-04 19:27 | ED DISCHARGE INSTRUCTIONS ---
Patient: JULIANNE HARRIS General Instructions [facility] VisitID: [id number] [place] [address] 26y, F Registration Date/Time: 02/03/2017 Acute pelvic pain. Acute urinary tract infection with cystitis. No pyelonephritis or hematuria. Not associated with indwelling catheter or obstruction. INSTRUCTIONS Warnings: GENERAL WARNINGS: Return or contact your physician immediately if your condition worsens or changes unexpectedly, if not improving as expected, or if other problems arise. Specifically return if problem worsens. Prescription Medications: Macrobid 100 mg: Take 1 capsule orally every 12 hours for 7 days. No refills. Substitution is permissible. Follow-up: Follow up with your doctor in about two days even if well. Call for an appointment. Summary of care provided to patient. Understanding of the discharge instructions verbalized by patient. ADDITIONAL INFORMATION Pelvic Pain, Uncertain Cause Based on your visit today, the exact cause of your pelvic pain is not certain. But your condition does not appear to be serious at this time. However, the signs of a serious problem may take more time to appear. Therefore, it is important for you to watch for any new symptoms or worsening of your condition. Home Care: Rest until you are feeling better. Avoid sexual intercourse until your pain goes away. You may use acetaminophen (Tylenol) or ibuprofen (Motrin, Advil) to control pain, unless another medicine was prescribed. [NOTE: If you have chronic liver or kidney disease or ever had a stomach ulcer or GI bleeding, talk with your doctor before using these medicines.] Follow Up with your doctor as advised. If a culture test was taken, call in two days for the results. If the culture is positive, you will be given more advice at that time. Otherwise, follow-up with your doctor or this facility as instructed. Get Prompt Medical Attention if any of the following occur: Fever of 100.4F (38C) or higher, or as directed by your healthcare provider Vaginal discharge Worsening pain Weakness, dizziness or fainting Unexpected vaginal bleeding or passage of tan or white tissue from the vagina Pain that moves to the right lower abdomen Bladder Infection,Female (Adult) A bladder infection ("cystitis" or "UTI") usually causes a constant urge to urinate and a burning when passing urine. Urine may be cloudy, smelly or dark. There may be pain in the lower abdomen. A bladder infection occurs when bacteria from the vaginal area enter the bladder opening (urethra). This can occur from sexual intercourse, wearing tight clothing, dehydration and other factors. Home Care: Drink lots of fluids (at least 6-8 glasses a day, unless you must restrict fluids for other medical reasons). This will force the medicine into your urinary system and flush the bacteria out of your body. Avoid sexual intercourse until your symptoms are gone. Avoid caffeine, alcohol and spicy foods. These can irritate the bladder. A bladder infection is treated with antibiotics. You may also be given Pyridium (generic = phenazopyridine) to reduce the burning sensation. This medicine will cause your urine to become a bright orange color. The orange urine may stain clothing. You may wear a pad or panty-liner to protect clothing. Preventing Future Infections: Always wipe from front to back after a bowel movement. Keep the genital area clean and dry. Drink plenty of fluids each day to avoid dehydration. Both sexual partners should wash before intercourse. Urinate right after intercourse to flush out the bladder. Wear cotton underwear and cotton-lined panty hose; avoid tight-fitting pants. If you are on control pills and are having frequent bladder infections, discuss with your doctor. Follow Up: Return to this facility or see your doctor if ALL symptoms are not gone after three days of treatment. Get Prompt Medical Attention if any of the following occur: Fever of 100.4F (38C) or higher, or as directed by your healthcare provider No improvement by the third day of treatment Increasing back or abdominal pain Repeated vomiting; unable to keep medicine down Weakness, dizziness or fainting Vaginal discharge Pain, redness or swelling in the labia (outer vaginal area) Nitrofurantoin, Nitrofurantoin, Macrocrystalline Oral capsule What is this medicine? NITROFURANTOIN (cole rutledge) is an antibiotic. It is used to treat urinary tract infections. How should I use this medicine? Take this medicine by mouth with a glass of water. Follow the directions on the prescription label. Take this medicine with food or milk. Take your doses at regular intervals. Do not take your medicine more often than directed. Do not stop taking except on your doctor's advice. Talk to your manager decision support regarding the use of this medicine in children. While this drug may be prescribed for selected conditions, precautions do apply. What side effects may I notice from receiving this medicine? Side effects that you should report to your doctor or health nurse healthcare manager as soon as possible: allergic reactions like skin rash or hives, swelling of the face, lips, or tongue chest pain cough difficulty breathing dizziness, drowsiness fever or infection joint aches or pains pale or blue-tinted skin redness, blistering, peeling or loosening of the skin, including inside the mouth tingling, burning, pain, or numbness in hands or feet unusual bleeding or bruising unusually weak or tired yellowing of eyes or skin Side effects that usually do not require medical attention (report to your doctor or health nurse healthcare manager if they continue or are bothersome): dark urine diarrhea headache loss of appetite nausea or vomiting temporary hair loss What may interact with this medicine? antacids containing magnesium trisilicate probenecid quinolone antibiotics like ciprofloxacin, lomefloxacin, norfloxacin and ofloxacin sulfinpyrazone What if I miss a dose? If you miss a dose, take it as soon as you can. If it is almost time for your next dose, take only that dose. Do not take double or extra doses. Where should I keep my medicine? Keep out of the reach of children. Store at room temperature between 15 and 30 degrees C (59 and 86 degrees F). Protect from light. Throw away any unused medicine after the expiration date. What should I tell my health care provider before I take this medicine? They need to know if you have any of these conditions: anemia diabetes ynhdlfq-4-rccfiomtp dehydrogenase deficiency kidney disease liver disease lung disease other chronic illness an unusual or allergic reaction to nitrofurantoin, other antibiotics, other medicines, foods, dyes or preservatives or trying to get breast-feeding What should I watch for while using this medicine? Tell your doctor or health nurse healthcare manager if your symptoms do not improve or if you get new symptoms. Drink several glasses of water a day. If you are taking this medicine for a long time, visit your doctor for regular checks on your progress. If you are diabetic, you may get a false positive result for sugar in your urine with certain brands of urine tests. Check with your doctor. You have been given the following additional information: Pelvic Pain, Unknown Cause Bladder Infection, Female (Adult) Nitrofurantoin, Nitrofurantoin, Macrocrystalline Oral capsule (Electronically signed by Livia Gunedrson A.R.N.P. 02/03/2017 23:58)
--- NOTE | 2017-02-04 19:27 | ED MAR SUMMARY ---
..... Medication Administration [facility] [address] [place], [place] [id number] Patient: JULIANNE HARRIS Visit ID: [id number] 26y, F Weight: 90.7 kg Height/Length: 65 in BMI: 33.3 ALLERGIES: Latex, Iodine, vicodin- migraines, and itchy
--- NOTE | 2017-02-04 19:27 | ED DISCHARGE INSTRUCTIONS ---
Patient: JULIANNE HARRIS General Instructions [facility] VisitID: [id number] [place] [address] 26y, F Registration Date/Time: 02/03/2017 Acute pelvic pain. Acute urinary tract infection with cystitis. No pyelonephritis or hematuria. Not associated with indwelling catheter or obstruction. INSTRUCTIONS Warnings: GENERAL WARNINGS: Return or contact your physician immediately if your condition worsens or changes unexpectedly, if not improving as expected, or if other problems arise. Specifically return if problem worsens. Prescription Medications: Macrobid 100 mg: Take 1 capsule orally every 12 hours for 7 days. No refills. Substitution is permissible. Follow-up: Follow up with your doctor in about two days even if well. Call for an appointment. Summary of care provided to patient. Understanding of the discharge instructions verbalized by patient. ADDITIONAL INFORMATION Pelvic Pain, Uncertain Cause Based on your visit today, the exact cause of your pelvic pain is not certain. But your condition does not appear to be serious at this time. However, the signs of a serious problem may take more time to appear. Therefore, it is important for you to watch for any new symptoms or worsening of your condition. Home Care: Rest until you are feeling better. Avoid sexual intercourse until your pain goes away. You may use acetaminophen (Tylenol) or ibuprofen (Motrin, Advil) to control pain, unless another medicine was prescribed. [NOTE: If you have chronic liver or kidney disease or ever had a stomach ulcer or GI bleeding, talk with your doctor before using these medicines.] Follow Up with your doctor as advised. If a culture test was taken, call in two days for the results. If the culture is positive, you will be given more advice at that time. Otherwise, follow-up with your doctor or this facility as instructed. Get Prompt Medical Attention if any of the following occur: Fever of 100.4F (38C) or higher, or as directed by your healthcare provider Vaginal discharge Worsening pain Weakness, dizziness or fainting Unexpected vaginal bleeding or passage of tan or white tissue from the vagina Pain that moves to the right lower abdomen Bladder Infection,Female (Adult) A bladder infection ("cystitis" or "UTI") usually causes a constant urge to urinate and a burning when passing urine. Urine may be cloudy, smelly or dark. There may be pain in the lower abdomen. A bladder infection occurs when bacteria from the vaginal area enter the bladder opening (urethra). This can occur from sexual intercourse, wearing tight clothing, dehydration and other factors. Home Care: Drink lots of fluids (at least 6-8 glasses a day, unless you must restrict fluids for other medical reasons). This will force the medicine into your urinary system and flush the bacteria out of your body. Avoid sexual intercourse until your symptoms are gone. Avoid caffeine, alcohol and spicy foods. These can irritate the bladder. A bladder infection is treated with antibiotics. You may also be given Pyridium (generic = phenazopyridine) to reduce the burning sensation. This medicine will cause your urine to become a bright orange color. The orange urine may stain clothing. You may wear a pad or panty-liner to protect clothing. Preventing Future Infections: Always wipe from front to back after a bowel movement. Keep the genital area clean and dry. Drink plenty of fluids each day to avoid dehydration. Both sexual partners should wash before intercourse. Urinate right after intercourse to flush out the bladder. Wear cotton underwear and cotton-lined panty hose; avoid tight-fitting pants. If you are on control pills and are having frequent bladder infections, discuss with your doctor. Follow Up: Return to this facility or see your doctor if ALL symptoms are not gone after three days of treatment. Get Prompt Medical Attention if any of the following occur: Fever of 100.4F (38C) or higher, or as directed by your healthcare provider No improvement by the third day of treatment Increasing back or abdominal pain Repeated vomiting; unable to keep medicine down Weakness, dizziness or fainting Vaginal discharge Pain, redness or swelling in the labia (outer vaginal area) Nitrofurantoin, Nitrofurantoin, Macrocrystalline Oral capsule What is this medicine? NITROFURANTOIN (cole rutledge) is an antibiotic. It is used to treat urinary tract infections. How should I use this medicine? Take this medicine by mouth with a glass of water. Follow the directions on the prescription label. Take this medicine with food or milk. Take your doses at regular intervals. Do not take your medicine more often than directed. Do not stop taking except on your doctor's advice. Talk to your senior instructional designer regarding the use of this medicine in children. While this drug may be prescribed for selected conditions, precautions do apply. What side effects may I notice from receiving this medicine? Side effects that you should report to your doctor or health infant caregiver as soon as possible: allergic reactions like skin rash or hives, swelling of the face, lips, or tongue chest pain cough difficulty breathing dizziness, drowsiness fever or infection joint aches or pains pale or blue-tinted skin redness, blistering, peeling or loosening of the skin, including inside the mouth tingling, burning, pain, or numbness in hands or feet unusual bleeding or bruising unusually weak or tired yellowing of eyes or skin Side effects that usually do not require medical attention (report to your doctor or health infant caregiver if they continue or are bothersome): dark urine diarrhea headache loss of appetite nausea or vomiting temporary hair loss What may interact with this medicine? antacids containing magnesium trisilicate probenecid quinolone antibiotics like ciprofloxacin, lomefloxacin, norfloxacin and ofloxacin sulfinpyrazone What if I miss a dose? If you miss a dose, take it as soon as you can. If it is almost time for your next dose, take only that dose. Do not take double or extra doses. Where should I keep my medicine? Keep out of the reach of children. Store at room temperature between 15 and 30 degrees C (59 and 86 degrees F). Protect from light. Throw away any unused medicine after the expiration date. What should I tell my health care provider before I take this medicine? They need to know if you have any of these conditions: anemia diabetes eqzjphh-4-fllequthi dehydrogenase deficiency kidney disease liver disease lung disease other chronic illness an unusual or allergic reaction to nitrofurantoin, other antibiotics, other medicines, foods, dyes or preservatives or trying to get breast-feeding What should I watch for while using this medicine? Tell your doctor or health infant caregiver if your symptoms do not improve or if you get new symptoms. Drink several glasses of water a day. If you are taking this medicine for a long time, visit your doctor for regular checks on your progress. If you are diabetic, you may get a false positive result for sugar in your urine with certain brands of urine tests. Check with your doctor. You have been given the following additional information: Pelvic Pain, Unknown Cause Bladder Infection, Female (Adult) Nitrofurantoin, Nitrofurantoin, Macrocrystalline Oral capsule (Electronically signed by Livia Gunderson A.R.N.P. 02/03/2017 23:58)
--- NOTE | 2017-02-04 19:27 | ED MED RECONCILIATION SUMMARY ---
Patient: JULIANNE HARRIS Medication Reconciliation Report [facility] VisitID: [id number] [address] [place] [address] 26y, F Registration Date/Time: 02/03/2017 Weight: 90.7 kg Height/Length: 65 in. BMI: 33.3 ALLERGIES: Iodine, Latex, vicodin- migraines, and itchy The patient's Home Medications are listed below: THE FOLLOWING MEDICATIONS NEED TO BE RECONCILED: Citalopram Hydrobromide Oral Prenantal The source(s) of the original Home Medication information: Not obtained. The following Medications were given to the patient in the Emergency Department: None. The following Medications were prescribed to the patient: Macrobid 100 mg: Take 1 capsule orally every 12 hours for 7 days. No refills. Substitution is permissible. -- Livia Gunderson A.R.N.P.
--- NOTE | 2017-02-04 19:27 | ED MAR SUMMARY ---
..... Medication Administration Record [facility] [address], [place] [id number] Patient: JULIANNE HARRIS Visit ID: [id number] 26y, F Weight: 90.7 kg Height/Length: 65 in BMI: 33.3 ALLERGIES: Latex, Iodine, vicodin- migraines, and itchy
== END 2017-02-03 18:50 | disposition home or self-care (01) ==
LOC: ED SRH 14:20
DX: O23.11 Infections of bladder in pregnancy, first trimester (principal); O99.89 Other specified diseases and conditions complicating pregnancy, childbirth and the puerperium; N30.00 Acute cystitis without hematuria; R10.2 Pelvic and perineal pain; Z3A.01 Less than 8 weeks gestation of pregnancy
CPT/HCPCS: 90004; 90074; 90100; 90148; 90197; 90469; 95059

== ENCOUNTER 2017-02-27 17:02 | Outpatient (CLI) | payer OTHER | END 2017-02-27 23:00 | LOC: LAB SRH 17:02 | DX: N91.2 Amenorrhea, unspecified (principal) | CPT/HCPCS: 90004; 90074; 90078; 90261; 90364; 90599; 90600; 90605; 90606; 90710; 90851; 92863; 93140; 98480; 99777 ==

== ENCOUNTER 2017-05-06 16:23 | Emergency (ER) | payer OTHER ==
--- NOTE | 2017-05-06 18:28 | ED ORDER SUMMARY ---
..... Patient: JULIANNE HARRIS OrderSheet [facility] VisitID: [id number] [place] [address] 26y, F Registration Date/Time: 05/06/2017 ORDER SHEET Weight: 92.0 kg (stated) Allergies: Iodine, Latex, vicodin- migraines, and itchy, Zoloft GENERAL ORDERS: CBC w Diff Urgent (17:09 05/06/2017 EKoroleva P.A.-C) (Ack 17:12 LNations ER Tech1) (17:36 RCollier R.N.) CMP Urgent (17:05/06/2017 EKoroleva P.A.-C) (Ack 17:13 LNations ER Tech1) (17:36 RCollier R.N.) UA-Culture if indicated Urgent (17:05/06/2017 EKoroleva P.A.-C) (Ack 17:13 LNations ER Tech1) (17:19 RCollier R.N.) Heart Tones (17:20 05/06/2017 EKoroleva P.A.-C) (17:36 RCollier R.N.) MEDICATION ORDERS: Zofran ODT PO 4 mg (NOW) (17:09 05/06/2017 EKoroleva P.A.-C) (Ack 17:19 RCollier R.N.) (17:36 RCollier R.N.) Tylenol PO 650 mg (NOW) (17:09 05/06/2017 EKoroleva P.A.-C) (Ack 17:19 RCollier R.N.) (17:36 RCollier R.N.) Macrobid PO 100 mg (NOW) (17:58 05/06/2017 EKoroleva P.A.-C) (Ack 18:02 RCollier R.N.) (18:07 RCollier R.N.) IV FLUIDS: IV NS : initial bolus 1000 mL (1000 mL/hr), then 1000 mL/hr for X1 (NOW); Casimiro (17:09 05/06/2017 EKoroleva P.A.-C) (Ack 17:19 RCollier R.N.) (17:35 Cassy Cueto) ORDER SHEET NOTES: [Electronically signed by Chhaya Garland R.N. (18:44 05/06/2017)] [Electronically signed by Ewa Razo P.A.-C (21:16 05/06/2017)] [Electronically locked/signed by Chhaya Garland R.N. (18:44 05/06/2017)]
--- NOTE | 2017-05-06 18:28 | ED CLINICAL REPORT ---
Clinical Report - Physicians/Mid Levels [facility] [address] [place] [address] 05/06/2017 16:25 Patient: JULIANNE HARRIS Time Seen: 17:18 May 06 2017. Arrived- By private vehicle. Historian- patient. HISTORY OF PRESENT ILLNESS Is still present. Chief Complaint: HEADACHE. This started today. It is described as similar to previous headaches. Located in the region of the right eye and left eye and frontal region. No preceding symptoms or blurred vision. (Patient with headache since noon, history of migraines, she is a , about 17 weeks IUP. H/o pre-eclampsia with first . Patient reportsno injury. Denies any neck pain. He denies fevers or chills. Reports no vaginal bleeding or loss of fluid. Denies urgency or frequency. OB is Dr. Gold.). REVIEW OF SYSTEMS No fever, sinus pressure, ear pain, sore throat or chest pain. No difficulty breathing, abdominal pain or pain with urination. All systems otherwise negative, except as recorded above. SOCIAL HISTORY Never smoker. No alcohol use. ADDITIONAL NOTES The nursing notes have been reviewed. PHYSICAL EXAM Vital Signs: 05/06/2017 16:33 BP: 135/73. HR: 81. RR: 18. O2 saturation: 100%. Temp: 97.9 F. Pain level now: 8/10. Appearance: Alert. Eyes: Eyes normal inspection. ENT: Nose normal. Pharynx normal. Neck: Normal inspection. No meningeal signs. CVS: Heart sounds normal. Respiratory: No respiratory distress. Abdomen: Soft and nontender. Back: Normal inspection. Neuro: Oriented X 3. Alert. Mood/affect normal. Cranial nerves normal (as tested). No cerebellar findings. No motor deficit. No weakness. No sensory deficit. LABS, X-RAYS, AND EKG Laboratory Tests: UA-Culture if indicated: (SANTOS: 05/06/2017 17:13) ( MsgRcvd 05/06/2017 17:40) Final results Test Result Flag Units (Reference) URINE COLOR STRAW URINE APPEARANCE SL CLOUDY URINE GLUCOSE NEGATIVE (NEGATIVE) URINE BILIRUBIN NEGATIVE (NEGATIVE) URINE KETONE NEGATIVE (NEGATIVE) URINE SPECIFIC GRAVITY <= 1.005 L (1.010-1.030) URINE PH 6.0 (5.0-8.0) URINE PROTEIN NEGATIVE (NEGATIVE) URINE UROBILINOGEN 0.2 EU/dL (0.2-1.0) URINE NITRITE NEGATIVE (NEGATIVE) URINE BLOOD NEGATIVE (NEGATIVE) URINE LEUK ESTERASE TRACE (NEGATIVE) URINE RBC 0-1 rbc/hpf (0-1) URINE WBC 3-5 wbc/hpf (0-1) URINE EPITHELIAL CELLS 5-10 EPI/hpf (0-5) URINE BACTERIA FEW (1+) (NONE SEEN) URINE COMMENT CULTURE INDICATED URINE CULTURES ARE SET-UP BASED ON THE FOLLOWING CRITERIA:POSITIVE NITRITEPOSITIVE LEUKOCYTE ESTERASEGREATER THAN 10 WHITE BLOOD CELLSMODERATE (2+) OR GREATER BACTERIA CBC w Diff: (SANTOS: 05/06/2017 17:25) ( [facility] 05/06/2017 17:49) Final results Test Result Flag Units (Reference) WHITE BLOOD COUNT 10.7 K/uL (4.5-11.5) RED BLOOD COUNT 3.93 L M/uL (4.00-5.20) HEMOGLOBIN 11.2 L gm/dL (12.0-16.0) HEMATOCRIT 33.6 L % (36.0-46.0) MEAN CELL VOLUME 85 fL (80-100) MEAN CORPUSCULAR HGB 29 pg (26-34) MEAN CORPUSCULAR HGB CONC 34 g/dL (31-37) RED CELL DISTRIBUTION WIDTH 13.7 % (11.6-14.8) PLATELET COUNT 328 K/uL (150-400) LYMPH % 22.8 L % (25-40) MONO % 3.8 % (3-14) GRANULOCYTE % 73.4 (53-90) CMP: (SANTOS: 05/06/2017 17:25) ( [facility] 05/06/2017 17:57) Final results Test Result Flag Units (Reference) GLUCOSE 70 mg/dL (70-110) BUN 9 mg/dL (7-18) CREATININE 0.5 L mg/dL (0.6-1.3) Estimated GFR >60 mL/min Estimated GFR- >60 mL/min Note: Persistent reduction over 3 months in eGFR<60 mL/min/1.73 m2 defines CKD. Patients with eGFR values>=60 mL/min/1.73 m2 may also have CKD if evidence ofpersistent proteinuria. Additional information may be foundat www.kidney.org. SODIUM 139 mmol/L (136-145) POTASSIUM 3.4 L mmol/L (3.5-5.1) CHLORIDE 103 mmol/L (98-107) CARBON DIOXIDE 27 mmol/L (21-32) CALCIUM 8.9 mg/dL (8.5-10.1) TOTAL PROTEIN 6.8 g/dL (6.4-8.2) ALBUMIN 3.1 L g/dL (3.3-5.0) BILIRUBIN, TOTAL 0.2 mg/dL (0.0-1.0) ALKALINE PHOSPHATASE 84 U/L (46-116) AST (SGOT) 11 L U/L (15-37) ALT (SGPT) 24 U/L (12-78) . PROGRESS AND PROCEDURES Course of Care: ( FHT- 145, heard in LLQ (suprapubic area)). --17:18 atient here in the ER with improvement of her headache after IV fluids, and medications. Signs of acute cystitis, otherwise no signs of her concern for acute meningitis, intracranial hemorrhage or subarachnoid hemorrhage. Patient reports history of migraines and headaches that worsen with cystitis-like symptoms. Patient afebrile. No meningeal signs. heart tones's above. 05/06/2017 18:35 BP: 128/68. HR: 78. RR: 15. O2 saturation: 100%. Pain level now: 01/25. Patient is stable. Patient/family counseled. CLINICAL IMPRESSION Acute cystitis. 2nd Trimester Headache. INSTRUCTIONS Warnings: Further evaluation is necessary. Prescription Medications: Macrobid 100 mg: Take 1 capsule orally every 12 hours for 7 days. No refills. Substitution is permissible. OTC Medications: Take acetaminophen (Tylenol, Datril, etc.) and Benadryl according to label instructions. Available over the counter. Acetaminophen (available over the counter): take according to label instructions. Follow-up: Follow up with your doctor in three days. (Electronically signed by Ewa Razo P.A.-C 05/06/2017 21:16)
--- NOTE | 2017-05-06 18:28 | ED ORDER SUMMARY ---
..... Patient: JULIANNE HARRIS OrderSheet [facility] VisitID: [id number] [place] [address] 26y, F Registration Date/Time: 05/06/2017 ORDER SHEET Weight: 92.0 kg (stated) Allergies: Iodine, Latex, vicodin- migraines, and itchy, Zoloft GENERAL ORDERS: CBC w Diff Urgent (17:09 05/06/2017 EKoroleva P.A.-C) (Ack 17:12 LNations ER Tech1) (17:36 RCollier R.N.) CMP Urgent (17:05/06/2017 EKoroleva P.A.-C) (Ack 17:13 LNations ER Tech1) (17:36 RCollier R.N.) UA-Culture if indicated Urgent (17:05/06/2017 EKoroleva P.A.-C) (Ack 17:13 LNations ER Tech1) (17:19 RCollier R.N.) Heart Tones (17:20 05/06/2017 EKoroleva P.A.-C) (17:36 RCollier R.N.) MEDICATION ORDERS: Zofran ODT PO 4 mg (NOW) (17:09 05/06/2017 EKoroleva P.A.-C) (Ack 17:19 RCollier R.N.) (17:36 RCollier R.N.) Tylenol PO 650 mg (NOW) (17:09 05/06/2017 EKoroleva P.A.-C) (Ack 17:19 RCollier R.N.) (17:36 RCollier R.N.) Macrobid PO 100 mg (NOW) (17:58 05/06/2017 EKoroleva P.A.-C) (Ack 18:02 RCollier R.N.) (18:07 RCollier R.N.) IV FLUIDS: IV NS : initial bolus 1000 mL (1000 mL/hr), then 1000 mL/hr for X1 (NOW); Casimiro (17:09 05/06/2017 EKoroleva P.A.-C) (Ack 17:19 RCollier R.N.) (17:35 Cassy Cueto) ORDER SHEET NOTES: [Electronically signed by Chhaya Garland R.N. (18:44 05/06/2017)] [Electronically signed by Ewa Razo P.A.-C (21:16 05/06/2017)] [Electronically locked/signed by Chhaya Garland R.N. (18:44 05/06/2017)]
--- NOTE | 2017-05-06 18:28 | ED NURSING NOTES ---
Clinical Report - Nurses [facility] [place] [address] 05/06/2017 16:25 Patient: JULIANNE HARRIS TRIAGE Acuity: LEVEL 3. Chief Complaint: (headache). Alert. No acute distress. SEPSIS SCREEN: Sepsis Screen. Negative (no infection suspected/documented). --16:39 Darcy Lau R.N. 16:33 05/06/17. BP: 135/73. HR: 81. RR: 18. O2 saturation: 100%. Temp: 97.9 F (oral). Pain level now: 06/27. --16:39 Darcy Lau R.N. Weight: 92 kg stated. Height/Length: 65 inches Per Patient. BMI: 33.8. --16:36 Darcy Lau R.N. Medications Citalopram Hydrobromide Oral. Prenantal . --16:38 Darcy Lau R.N. Medication/allergy information source: the patient. --16:39 Darcy Lau R.N. Allergies Iodine.(rash) Latex. vicodin- migraines, and itchy. --16:39 Darcy Lau R.N. Zoloft. --16:39 Darcy Lau R.N. History Arrived by private vehicle. Historian: patient. Unaccompanied. Primary physician (Asif). This started today. ( Pt reports she is approx 18 weeks and has a history of pre-eclampsia with a prior . Pt reports a headache today and "seeing stars".). She has had a headache. ( Pt reports vision changes). PAST MEDICAL HX: Last normal menstrual period- Dec 29 2015. OB history: G 3; P 2; Ab 0. SOCIAL HX: Never smoker. No alcohol use or drug use. FALL RISK ASSESSMENT: Fall risk assessment completed. No fall risk identified. NUTRITIONAL RISK ASSESSMENT: The nutritional risk assessment revealed no deficiencies. FUNCTIONAL ASSESSMENT: Functional assessment: no impairments noted. LEARNING NEEDS ASSESSMENT: The learning needs assessment revealed no barriers. SKIN INTEGRITY ASSESSMENT: Skin integrity risk assessment completed. No skin integrity risk identified. --16:39 Darcy Lau R.N. PROBLEMS: Pelvic Pain. UTI - Urinary Tract Infection. . Hypertension. Anxiety Reaction. Optical migranes . Bronchitis. --16:39 Darcy Lau R.N. Assessment GENERAL / NEURO / PSYCH: Alert. Oriented X 4. Appears in no acute distress. Vish Coma Scale: 15- eyes open spontaneously (4); best verbal response- oriented x 4 (5); best motor response- obeys commands (6). Patient appears calm and cooperative. RESPIRATORY: Respirations not labored. CVS: Capillary refill less than 2 seconds. GI / : Abdomen soft and nontender. SKIN: Mucous membranes are pink. Skin is warm and dry. --16:39 Darcy Lau R.N. Interventions ID band on patient. To treatment room. --16:39 Darcy Lau R.N. PHYSICAL ASSESSMENT 16:40 05/06/17. Ambulatory to room. GENERAL / NEURO / PSYCH: Alert. Oriented X 4. Appears in no acute distress. HEENT: Mucous membranes are pink. RESPIRATORY: Respirations not labored. CVS: Capillary refill less than 2 seconds. GI / : Abdomen soft and nontender. No vaginal bleeding. SKIN: Skin is warm and dry. --16:40 Darcy Lau R.N. NURSING PROGRESS NOTES 16:40 05/06/17. Patient gowned. Reassurance given. Two patient identifiers checked. Checked patient name and birthdate: patient confirmed. Call light placed in reach. Side rails up. Bed placed in lowest position. Brakes of bed on. Patient ready for evaluation- chart flagged and ED physician and PA notified. --16:40 Darcy Lau R.N. 17:13. Patient ID band checked for patient name and birthdate: patient confirmed urine collected with return of yellow-colored clear urine; sample sent to lab. Specimen labeled in the presence of the patient. --17:18 Chhaya Garland R.N. ( FHT- 145, heard in LLQ (suprapubic area)). --17:18 Chhaya Garland R.N. 17:23 05/06/2017 Zofran ODT (Ondansetron) PO Oral Disintegrating Tablets 4 mg given. Allergies verified and confirmed 5 rights. --17:36 Chhaya Garland R.N. 17:25 05/06/2017 Site #1 started via IV in the right antecubital space with an 20g angiocath, with aseptic technique and good blood return; one attempt. Blood drawn: rainbow set. Labeled in the presence of the patient and sent to the lab. Saline lock flushed with 10 mL saline. --17:35 Chhaya Garland R.N. 17:30 05/06/2017 Started bag #1 1000 mL IV Fluids IV NS (Saline); at 999 mL/hr via site #1 via IV pump. Allergies verified and confirmed 5 rights. IV patency established. IV site checked: no pain, redness, or swelling. IV flushed thoroughly pre- and post-medication administration. --17:35 Chhaya Garland R.N. 17:36 05/06/2017 Tylenol (Acetaminophen) PO Tablets 650 mg given. Allergies verified and confirmed 5 rights. --17:36 Chhaya Garland R.N. 17:57 05/06/17. BP: 105/57. HR: 68. RR: 15. O2 saturation: 100% on room air. --17:57 Chhaya Garland R.N. 18:07 05/06/2017 Macrobid PO Capsules 100 mg given. Allergies verified and confirmed 5 rights. --18:07 Chhaya Garland R.N. 18:32 05/06/2017 IV Fluids IV NS Discontinued: bag #1 completed. Total amount infused: 1000 mL. IV patency established. IV site checked: no pain, redness, or swelling. IV flushed thoroughly. --18:32 Chhaya Garland R.N. ( pt ambulates to restroom and back to bed. normal gait noted, no obvious distress). --18:33 Chhaya Garland R.N. DISPOSITION / DISCHARGE Condition at departure: improved and stable. No learning barriers present. Discharge instructions provided and reviewed with the patient. Reviewed medication(s) side effects, precautions, dosing and course information. Prescription(s) given to the patient. Work note given. Patient verbalized understanding. Written instructions provided in Czech. The patient was discharged home. She left the Emergency Department ambulatory and via private vehicle. --18:42 Chhaya Garland R.N. 18:35 05/06/17. BP: 128/68. HR: 78. RR: 15. O2 saturation: 100% on room air. Temp: deferred. Pain level now: 01/25. --18:42 Chhaya Garland R.N. 18:35 05/06/2017 Site #1 removed upon discharge. Catheter intact. Manual pressure and bandage applied. --18:43 Chhaya Garland R.N. Locked/Released at 05/06/2017 18:44 by Chhaya Garland R.N.
--- NOTE | 2017-05-06 21:17 | ED MAR SUMMARY ---
..... Medication Administration Record [facility] [address] [place] [address] Patient: JULIANNE HARRIS Visit ID: [id number] 26y, F Weight: 92.0 kg Height/Length: 65 in BMI: 33.8 ALLERGIES: Zoloft, Iodine, Latex, vicodin- migraines, and itchy Given 17:23 05/06/2017 Chhaya Garland R.N. Medication Administered: ZOFRAN ODT [PO] (ONDANSETRON), Dose: 4 mg Oral Disintegrating Tablets PO. Medication Ordered: Zofran ODT PO 4 mg (NOW). Start 17:30 05/06/2017 Chhaya Garland R.N., Stop 18:32 05/06/2017 Chhaya Garland R.N. Medication Administered: IV NS (SALINE), Dose: IV Fluids, Rate: 999 mL/hr, Dispensed: 1000 mL bag, Site: #1 right AC. Medication Ordered: IV NS : initial bolus 1000 mL (1000 mL/hr), then 1000 mL/hr for X1 (NOW); Casimiro. Given 17:36 05/06/2017 Chhaya Garland R.N. Medication Administered: TYLENOL [PO] (ACETAMINOPHEN), Dose: 650 mg Tablets PO. Medication Ordered: Tylenol PO 650 mg (NOW). Given 18:07 05/06/2017 Chhaya Garland R.N. Medication Administered: MACROBID [PO], Dose: 100 mg Capsules PO. Medication Ordered: Macrobid PO 100 mg (NOW).
--- NOTE | 2017-05-06 21:17 | ED DISCHARGE INSTRUCTIONS ---
Patient: JULIANNE HARRIS General Instructions [facility] VisitID: [id number] [place] [address] 26y, F Registration Date/Time: 05/06/2017 Acute cystitis. 2nd Trimester Headache. INSTRUCTIONS Warnings: Further evaluation is necessary. Prescription Medications: Macrobid 100 mg: Take 1 capsule orally every 12 hours for 7 days. No refills. Substitution is permissible. OTC Medications: Take acetaminophen (Tylenol, Datril, etc.) and Benadryl according to label instructions. Available over the counter. Acetaminophen (available over the counter): take according to label instructions. Follow-up: Follow up with your doctor in three days. ADDITIONAL INFORMATION Bladder Infection,Female (Adult) A bladder infection ("cystitis" or "UTI") usually causes a constant urge to urinate and a burning when passing urine. Urine may be cloudy, smelly or dark. There may be pain in the lower abdomen. A bladder infection occurs when bacteria from the vaginal area enter the bladder opening (urethra). This can occur from sexual intercourse, wearing tight clothing, dehydration and other factors. Home Care: Drink lots of fluids (at least 6-8 glasses a day, unless you must restrict fluids for other medical reasons). This will force the medicine into your urinary system and flush the bacteria out of your body. Avoid sexual intercourse until your symptoms are gone. Avoid caffeine, alcohol and spicy foods. These can irritate the bladder. A bladder infection is treated with antibiotics. You may also be given Pyridium (generic = phenazopyridine) to reduce the burning sensation. This medicine will cause your urine to become a bright orange color. The orange urine may stain clothing. You may wear a pad or panty-liner to protect clothing. Preventing Future Infections: Always wipe from front to back after a bowel movement. Keep the genital area clean and dry. Drink plenty of fluids each day to avoid dehydration. Both sexual partners should wash before intercourse. Urinate right after intercourse to flush out the bladder. Wear cotton underwear and cotton-lined panty hose; avoid tight-fitting pants. If you are on control pills and are having frequent bladder infections, discuss with your doctor. Follow Up: Return to this facility or see your doctor if ALL symptoms are not gone after three days of treatment. Get Prompt Medical Attention if any of the following occur: Fever of 100.4F (38C) or higher, or as directed by your healthcare provider No improvement by the third day of treatment Increasing back or abdominal pain Repeated vomiting; unable to keep medicine down Weakness, dizziness or fainting Vaginal discharge Pain, redness or swelling in the labia (outer vaginal area) You have been given the following additional information: Bladder Infection, Female (Adult) (Electronically signed by Ewa Razo P.A.-C 05/06/2017 21:16)
--- NOTE | 2017-05-06 21:17 | ED MED RECONCILIATION SUMMARY ---
Patient: JULIANNE HARRIS Medication Reconciliation Report [facility] VisitID: [id number] [place] [address] 26y, F Registration Date/Time: 05/06/2017 Weight: 92.0 kg Height/Length: 65 in. BMI: 33.8 ALLERGIES: Iodine, Latex, vicodin- migraines, and itchy, Zoloft The patient's Home Medications are listed below: THE FOLLOWING MEDICATIONS NEED TO BE RECONCILED: Citalopram Hydrobromide Oral Prenantal The source(s) of the original Home Medication information: patient The following Medications were given to the patient in the Emergency Department: IV NS IV Fluids bolus 0, then 999 mL/hr, administered: 05/06/2017 5:30:00 PM Zofran ODT [PO] PO 4 mg, administered: 05/06/2017 5:23:00 PM Tylenol [PO] PO 650 mg, administered: 05/06/2017 5:36:00 PM Macrobid [PO] PO 100 mg, administered: 05/06/2017 6:07:00 PM The following Medications were prescribed to the patient: Take acetaminophen (Tylenol, Datril, etc.) and Benadryl according to label instructions. Available over the counter. -- Ewa Razo, P.A.-C Acetaminophen (available over the counter): take according to label instructions. -- Ewa Razo, P.A.-C Macrobid 100 mg: Take 1 capsule orally every 12 hours for 7 days. No refills. Substitution is permissible. -- Ewa Razo, P.A.-C
--- NOTE | 2017-05-06 21:17 | ED MAR SUMMARY ---
..... Medication Administration Record [facility] [address] [place] [address] Patient: JULIANNE HARRIS Visit ID: [id number] 26y, F Weight: 92.0 kg Height/Length: 65 in BMI: 33.8 ALLERGIES: Zoloft, Iodine, Latex, vicodin- migraines, and itchy Given 17:23 05/06/2017 Chhaya Graland R.N. Medication Administered: ZOFRAN ODT [PO] (ONDANSETRON), Dose: 4 mg Oral Disintegrating Tablets PO. Medication Ordered: Zofran ODT PO 4 mg (NOW). Start 17:30 05/06/2017 Chhaya Garland R.N., Stop 18:32 05/06/2017 Chhaya Garland R.N. Medication Administered: IV NS (SALINE), Dose: IV Fluids, Rate: 999 mL/hr, Dispensed: 1000 mL bag, Site: #1 right AC. Medication Ordered: IV NS : initial bolus 1000 mL (1000 mL/hr), then 1000 mL/hr for X1 (NOW); Casimiro. Given 17:36 05/06/2017 Chhaya Garland R.N. Medication Administered: TYLENOL [PO] (ACETAMINOPHEN), Dose: 650 mg Tablets PO. Medication Ordered: Tylenol PO 650 mg (NOW). Given 18:07 05/06/2017 Chhaya Garland R.N. Medication Administered: MACROBID [PO], Dose: 100 mg Capsules PO. Medication Ordered: Macrobid PO 100 mg (NOW).
--- NOTE | 2017-05-06 21:17 | ED MED RECONCILIATION SUMMARY ---
Patient: JULIANNE HARRIS Medication Reconciliation Report [facility] VisitID: [id number] [place] [address] 26y, F Registration Date/Time: 05/06/2017 Weight: 92.0 kg Height/Length: 65 in. BMI: 33.8 ALLERGIES: Iodine, Latex, vicodin- migraines, and itchy, Zoloft The patient's Home Medications are listed below: THE FOLLOWING MEDICATIONS NEED TO BE RECONCILED: Citalopram Hydrobromide Oral Prenantal The source(s) of the original Home Medication information: patient The following Medications were given to the patient in the Emergency Department: IV NS IV Fluids bolus 0, then 999 mL/hr, administered: 05/06/2017 5:30:00 PM Zofran ODT [PO] PO 4 mg, administered: 05/06/2017 5:23:00 PM Tylenol [PO] PO 650 mg, administered: 05/06/2017 5:36:00 PM Macrobid [PO] PO 100 mg, administered: 05/06/2017 6:07:00 PM The following Medications were prescribed to the patient: Take acetaminophen (Tylenol, Datril, etc.) and Benadryl according to label instructions. Available over the counter. -- Ewa Razo, P.A.-C Acetaminophen (available over the counter): take according to label instructions. -- Ewa Razo, P.A.-C Macrobid 100 mg: Take 1 capsule orally every 12 hours for 7 days. No refills. Substitution is permissible. -- Ewa Razo, P.A.-C
== END 2017-05-06 18:38 | disposition home or self-care (01) ==
LOC: ED SRH 16:23
DX: O23.12 Infections of bladder in pregnancy, second trimester (principal); N30.00 Acute cystitis without hematuria; O99.89 Other specified diseases and conditions complicating pregnancy, childbirth and the puerperium; R51 Headache; Z3A.17 17 weeks gestation of pregnancy
CPT/HCPCS: 90004; 90100; 90469; 95059

== ENCOUNTER → 2017-05-13 | Outpatient (CLI) | payer OTHER ==
--- NOTE | 2017-05-13 12:12 | DIAGNOSTIC IMAGING REPORT ---
PROCEDURE: US OB DETAILED ANATOMIC INDICATION: ANATOMY TECHNIQUE: Deng scale, color, and spectral Doppler images of the second trimester gravid uterus were obtained. COMPARISON: 02/03/2017 FINDINGS: A single living intrauterine is in breech presentation. There is regular cardiac activity at a rate of 133 beats per minute. The placenta is anterior and away from the internal cervical os. The cervix is closed measuring approximately 5 cm in length. The amniotic fluid volume is subjectively normal. Biparietal diameter 4.5 cm, 19 weeks 5 days Head circumference 16.9 cm, 19 weeks 4 days Abdominal circumference 13.7 cm, 19 weeks 1 day Femur length 3.0 cm, 19 weeks 2 days Head to abdominal circumference ratio and femur length to abdominal circumference ratios are normal. Estimated weight 282 g plus/minus 42 g Composite gestational age 19 weeks 3 days There was visualization of a number of normal structures including the intracranial contents, facial features, nuchal region, spine, four-chamber heart and outflow tracts to the extent that could be visualized, diaphragm, fluid-filled stomach, kidneys, abdomen, urinary bladder, upper and lower extremities, and genitals. A three-vessel umbilical cord, normal and placental cord insertion sites were seen. IMPRESSION: 1. Single living intrauterine with a composite gestational age of 19 weeks 3 days, in good agreement with the clinically assigned gestational age. 2. Symmetric growth and normal anatomy.
== END ==
LOC: US SRH 10:00
DX: Z34.92 Encounter for supervision of normal pregnancy, unspecified, second trimester (principal); Z3A.19 19 weeks gestation of pregnancy